=== PATIENT | female | born 1935 | race Caucasian/White ===

== ENCOUNTER 2016-06-12 10:40 | Emergency (ER) | payer OTHER ==
[2016-06-12 11:17] LABS: BASOPHILS 0.3 % (0.0-2.0); EOSINOPHILS# 0.1 X 10^3uL (0.0-0.4); HEMATOCRIT 42.1 % (36.0-48.0); HEMOGLOBIN 14.5 g/dL (12.0-16.0); LYMPHOCYTES 30.7 % (20.0-40.0); LYMPHOCYTES# 2.1 X 10^3uL (0.8-3.8); MEAN CELL VOLUME 86.9 fL (80.0-100.0); MEAN CORPUS. HGB CONCENTRATION 34.5 g/dL (32.0-36.0); MEAN PLATELET VOLUME 7.7 fL (7.4-10.4); MONOCYTES 5.3 % (2.0-10.0); MONOCYTES# 0.4 X 10^3uL (0.2-1.0); NEUTROPHILS 62.7 % (54.0-75.0); NEUTROPHILS# 4.3 X 10^3uL (2.6-6.7); RED BLOOD COUNT 4.84 X 10^6uL (4.20-6.10); RED CELL DISTRIBUTION WIDTH 12.6 % (11.5-14.5); WHITE BLOOD COUNT 6.9 X 10^3uL (3.9-10.7)
[2016-06-12] MEDS ORDERED: ENOXAPARIN SODIUM 80 MG/0.8 ML SYR SUBCUT ONE (12:21)
--- NOTE | 2016-06-12 12:42 | ER PHYSICIAN DOCUMENTATION ---
Physician Documentation [facility] Name:Lety Solis Age:80 yrs Sex:Female :1935 Arrival Date:06/12/2016 Time:10:40 Bed1 Private MD:Анна Whalen EDzuhairOsbaldo Disposition: 06/12/16 11:55 Discharged to Home/Self Care. Impression: Tendonitis - Plantar Fasciitis. - Condition is Good. - Discharge Instructions: PLANTAR FASCIITIS, Deep Vein Thrombophlebitis - DVT. - Medical Reconciliation form form. - Follow up: Анна Whalen MD; When: 4- 6 days; Reason: Continuance of care. - Problem is new. - Symptoms are unchanged. HPI: 06/12 10:48 This 80 yrs old Female presents to ER via Private Vehicle with complaints of tl1 Leg Pain. 11:44 The patient presents with pain, that is acute. The complaints affect the lateral aspect sc of right calf, right ankle and lateral aspect of right foot. Context: The problem was sustained at home, resulted from an unknown cause, the patient can fully bear weight, the patient is able to ambulate. Onset: The symptom(s)/episode began/occurred 2 week(s) ago, and became worse. Modifying factors: The symptoms are alleviated by standing or stretching, worried about blood clot but no swelling, _ Homans's sign. Associated signs and symptoms: The patient has no apparent associated signs or symptoms. Historical: - Allergies: SULFA (SULFONAMIDES); Oxycodone HCl; Vicodin; - Home Meds: 1. Aspirin Oral 2. CoQ-10 oral - PMHx: HIGH CHOLESTEROL; - PSHx: APPENDECTOMY; TONSILLECTOMY; colon resection due to polyps; - Tetanus: < 10 years. - Ebola Screening: : Patient negative for fever greater than or equal to 101.5 degrees Fahrenheit, and additional compatible Ebola Virus Disease symptoms. Patient denies exposure to infectious person. Patient denies travel to an Ebola-affected area in the 21 days before illness onset. No symptoms or risks identified at this time. . - Immunization history: Flu Vaccine < 1 year. - Social history: Smoking status: Patient states was never smoker of tobacco. ROS: 11:47 Constitutional: Negative for fever, chills, and weight loss. sc Eyes: Negative for injury, pain, redness, and discharge. Neck: Negative for injury, pain, and swelling. Cardiovascular: Negative for chest pain, palpitations, and edema. Respiratory: Negative for shortness of breath, cough, wheezing, and pleuritic chest pain. Abdomen/GI: Negative for abdominal pain, nausea, vomiting, diarrhea, and constipation. Skin: Negative for injury, rash, and discoloration. 11:47 Neuro: Negative for headache, weakness, numbness, tingling, and seizure. sc 11:47 MS/extremity: Positive for pain, Negative for contusion, ecchymosis, erythema, swelling, tenderness, tingling. Exam: Constitutional: This is a well developed, well nourished patient who is awake, alert, and in no acute distress. Head/Face: Normocephalic, atraumatic. Eyes: Pupils equal round and reactive to light, extra-ocular motions intact. Lids and lashes normal. Conjunctiva and sclera are non-icteric and not injected. Cornea within normal limits. Periorbital areas with no swelling, redness, or edema. Neck: Trachea midline, no thyromegaly or masses palpated, and no cervical lymphadenopathy. Supple, full range of motion without nuchal rigidity, or vertebral point tenderness. No meningismus. Chest/axilla: Normal chest wall appearance and motion. Nontender with no deformity. No lesions are appreciated. Respiratory: Lungs have equal breath sounds bilaterally, clear to auscultation and percussion. No rales, rhonchi or wheezes noted. No increased work of breathing, no retractions or nasal flaring. Abdomen/GI: Soft, non-tender, with normal bowel sounds. No distension or tympany. No guarding or rebound. No evidence of tenderness throughout. Back: No spinal tenderness. No costovertebral tenderness. Full range of motion. Skin: Warm, dry with normal turgor. Normal color with no rashes, no lesions, and no evidence of cellulitis. 11:51 Neuro: Awake and alert, GCS 15, oriented to person, place, time, and situation. sc Cranial nerves II-XII grossly intact. Motor strength 5/5 in all extremities. Sensory grossly intact. Cerebellar exam normal. Normal gait. 11:51 Musculoskeletal/extremity: Extremities: grossly normal except: noted in the arch of right foot: ROM: intact in all extremities, Circulation is intact in all extremities. Sensation intact. Vital Signs: 10:44 BP 140 / 54 LA Sitting (auto/reg); Pulse 72 LA; Resp 14 S; Temp 97.7(O); Pulse Ox 92% em3 on R/A; Weight 68.04 kg (R); Height 5 ft. 5 in. (165.10 cm) (R); Pain 5/10; 10:44 Body Mass Index 24.96 (68.04 kg, 165.10 cm) em3 MDM: 10:45 Patient medically screened. tl1 11:53 Differential diagnosis: tendonitis. Data reviewed: vital signs, nurses notes, lab test sc result(s), and as a result, I will discharge patient. Counseling: I had a detailed discussion with the patient and/or guardian regarding: the historical points, exam findings, and any diagnostic results supporting the discharge/admit diagnosis, lab results, the need for outpatient follow up, for a recheck. 11:55 ED course: Gave paperwork for us and lovenox injection to r/o dvt. az 06/12 11:25 Order name: CBC AUTO DIF, MDIF/RMOR IF IND EDAK 06/12 11:29 Interpretation: Normal. az 06/12 11:49 Order name: DDIMER; Complete Time: 11:56 [facility] 06/12 11:56 Interpretation: Abnormal. sc Dispensed Medications: 12:10 Drug: Lovenox 70 mg; Route: Sub-Q; Site: left upper abdomen; tg 12:17 Follow up: Response: No adverse reaction tg Signatures: Thierry Shanks RN RN tg Osbaldo Lee MD MD az Efren Turner MD MD tl1
--- NOTE | 2016-06-12 12:42 | ER NURSING DOCUMENTATION ---
Nurse's Notes [facility] Name:Lety Solis Age:80 yrs Sex:Female :1935 Arrival Date:06/12/2016 Time:10:40 Bed1 Private MD:Анна Whalen Diagnosis:Tendonitis - Plantar Fasciitis Presentation: 06/12 10:41 Transition of care: patient was not received from another setting of care. tg 10:41 Acuity: ROBERT 3 tg 10:41 Method Of Arrival: Private Vehicle tg 10:49 Presenting complaint: Patient states: Pain in right lower leg for the past week. No tg swelling, no redness. Triage Assessment: 10:56 General: Appears in no apparent distress, Behavior is cooperative, pleasant. Pain: tg Complains of pain in right leg from the knee down Also complains of sleeplessness. Pain: Aggravated by laying down. Neuro: Level of Consciousness is awake, alert. Cardiovascular: Capillary refill < 3 seconds in right toes. Respiratory: Respiratory effort is even, unlabored. Derm: Skin is pink, warm & dry. both legs have varicose veins and some discoloring, but no noticeable redness or warmth difference from the left and right legs. Both calves measure 34cm around. Historical: - Allergies: SULFA (SULFONAMIDES); Oxycodone HCl; Vicodin; - Home Meds: 1. Aspirin Oral 2. CoQ-10 oral - PMHx: HIGH CHOLESTEROL; - PSHx: APPENDECTOMY; TONSILLECTOMY; colon resection due to polyps; - Tetanus: < 10 years. - Ebola Screening: : Patient negative for fever greater than or equal to 101.5 degrees Fahrenheit, and additional compatible Ebola Virus Disease symptoms. Patient denies exposure to infectious person. Patient denies travel to an Ebola-affected area in the 21 days before illness onset. No symptoms or risks identified at this time. . - Immunization history: Flu Vaccine < 1 year. - Social history: Smoking status: Patient states was never smoker of tobacco. Screenin:07 Infectious Disease Risk Unable to Obtain. Abuse screen: Denies threats or abuse. Denies tg injuries from another. Nutritional screening: No deficits noted. Vital Signs: 10:44 BP 140 / 54 LA Sitting (auto/reg); Pulse 72 LA; Resp 14 S; Temp 97.7(O); Pulse Ox 92% em3 on R/A; Weight 68.04 kg (R); Height 5 ft. 5 in. (165.10 cm) (R); Pain 5/10; 10:44 Body Mass Index 24.96 (68.04 kg, 165.10 cm) em3 ED Course: 10:41 Patient arrived in ED. lm3 10:41 Анна Whalen MD is Private Physician. lm3 10:41 Triage completed. tg 10:44 Efren Turner MD is Attending Physician. tl1 10:48 Valuables Remains with patient Patient has correct armband on for positive em3 identification. Placed in gown. Bed in low position. Call light in reach. Side rails up X 1. 10:49 Thierry Shanks RN is Primary Nurse. tg 10:58 Attending Physician role handed off by Efren Turner MD nd 10:58 Osbaldo Lee MD is Attending Physician. sc 11:10 Labs drawn. By fuel verification technician Sent per order to lab. Inserted saline lock: 20 gauge in left em3 hand and blood collected. 11:54 Анна Whalen MD is Referral Physician. sc 12:16 Discontinued lock intact, bleeding controlled, pressure dressing applied, No em3 redness/swelling at site. Administered Medications: 12:10 Drug: Lovenox 70 mg; Route: Sub-Q; Site: left upper abdomen; tg 12:17 Follow up: Response: No adverse reaction tg Outcome: 11:55 Discharge ordered by . sc 12:17 Discharged to home ambulatory, with significant other. tg 12:17 Condition: unchanged 12:17 Discharge Assessment: Patient awake, alert and oriented x 3. No cognitive and/or functional deficits noted. Patient verbalized understanding of disposition instructions. 12:17 Instructed on discharge instructions, follow up and referral plans. 12:17 IV D/John 12:41 Patient left the ED. tg 06/13 13:09 Discharge F/U Call: Unable to reach: left voicemail: tg Signatures: Thierry Shanks RN RN tg Osbaldo Lee MD MD nd Mary, Armando em3 Efren Turner MD MD tl1 Luma Angel lm3
== END 2016-06-12 12:42 | disposition home or self-care (01) ==
LOC: ER 10:40
DX: M72.2 Plantar fascial fibromatosis (principal); R79.1 Abnormal coagulation profile; Z79.82 Long term (current) use of aspirin; E78.00 Pure hypercholesterolemia, unspecified
CPT/HCPCS: 85025; 85379; 96372; 99283; J1650